=== PATIENT | female | born 1995 | race African-American/Black ===

== ENCOUNTER 2023-06-24 02:13 | Emergency (ER) | payer MEDICAID ==
[~2023-06-24] VITALS: Ht 172.7 cm; Wt 62.0 kg
[2023-06-24 02:15] VITALS: BP 131/91; PULSE 126; RESP 18; TEMP 98.4; O2SAT 98
== END 2023-06-24 03:52 | disposition left against medical advice (07) ==
LOC: ER 02:37
DX: F41.9 Anxiety disorder, unspecified (principal); Z53.21 Procedure and treatment not carried out due to patient leaving prior to being seen by health care provider
CPT/HCPCS: 99281; Z7610